=== PATIENT | female | born 1980 | race Two or more races ===

== ENCOUNTER 2016-11-19 04:50 | Emergency (ER) | payer MEDICAID ==
--- NOTE | ~2016-11-19 | ER ---
PATIENT'S NAME: DUKE DIAL [facility] AGE: 36 Y [address] ROOM: [place] [id number] LOCATION: [facility] ADMIT DATE: 11/19/2016 ER/Outpatient Report DISCHARGE DATE: 11/19/2016 FAMILY PHYSICIAN: Physician, Unknown ATTENDING PHYSICIAN: Hussain Riddle Time of Arrival: 0450 hours Time of Evaluation: 0455 hours CHIEF COMPLAINT: Left upper quadrant abdominal pain. HISTORY OF PRESENT ILLNESS: The patient is a 36-year-old female, who presents to emergency department today with a chief complaint of left upper quadrant abdominal pain. She reports she is . She is G7, P6. She reports this pain started at 1:00 a.m. She reports some nausea, no vomiting. Denies any diarrhea or constipation. Denies any fevers. Does have some chills. No urinary frequency, urgency, or painful urination. The pain is sharp, it is currently 5/10 in severity. PAST MEDICAL HISTORY: None. She is O positive. PAST SURGICAL HISTORY: None. SOCIAL HISTORY: The patient denies any tobacco, alcohol, or illicit drug use. ALLERGIES: NO KNOWN DRUG ALLERGIES. MEDICATIONS: vitamins. PRIMARY CARE DOCTOR: Cannot remember the name. 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 ROS: All systems are reviewed by myself and negative with the exception of those discussed in the HPI and past medical history. PHYSICAL EXAMINATION: VITAL SIGNS: Weight 83.5 kg, blood pressure 131/92, pulse 84, respiratory PATIENT'S NAME: DUKE DIAL [facility] AGE: 36 Y [address] ROOM: [place] [id number] LOCATION: [facility] ADMIT DATE: 11/19/2016 ER/Outpatient Report DISCHARGE DATE: 11/19/2016 FAMILY PHYSICIAN: Physician, Unknown ATTENDING PHYSICIAN: Hussain Riddle rate 16, temperature 98.7, oxygen saturation 99% on room air. GENERAL: The patient is a 36-year-old female, appears stated age, in no acute distress. HEENT: Normocephalic, atraumatic. Pupils are equal, round, and reactive to light. Mucous membranes are moist. NECK: Supple. There is no nuchal rigidity. CARDIOVASCULAR: Regular rate and rhythm. No murmurs, rubs, or gallops. LUNGS: Clear to auscultation bilaterally. No wheezes, rales, or rhonchi. ABDOMEN: Gravid. Soft. Mild left upper quadrant tenderness to palpation. No rebound, rigidity, or guarding. Positive bowel sounds. MUSCULOSKELETAL: The patient moves all 4 extremities. SKIN: Warm and dry. No rashes or lesions noted. PELVIC: The patient has no evidence of bleeding noted. The cervix is closed. There is no adnexal tenderness. There is no cervical motion tenderness to palpation. LABORATORY DATA AND X-RAYS: Labs and x-rays are obtained. CBC is normal. Urinalysis is unremarkable except for 25 leukocyte esterase. The patient is O positive in the previous blood type testing. CMP is unremarkable. LFTs are normal. Lipase is normal. A bedside ultrasound was performed by myself, it does reveal intrauterine with a heart rate of 158. There is a crown-rump length of 11 weeks and 1 day. IMPRESSION: 1. An acute nonsurgical left upper quadrant abdominal pain. 2. Intrauterine with crown-rump length of 11 weeks and 1 day and a heart rate of 158. 3. Initial visit. EMERGENCY DEPARTMENT COURSE: The patient was brought back to the examination room. Seen and evaluated by myself. Laboratory analysis and imaging are obtained as described above. The patient is given a GI cocktail. This does result in some mild improvement of the patient's symptoms. The patient's abdominal exam is repeated. She continues to have a nonsurgical abdominal exam at this time. I have discussed results with the patient. Her questions are answered. I have asked that she follows up with Dr. Quiroz in 2-3 days for re-evaluation. I have discussed return to care instructions including worsening symptoms or any other concerns to return to the emergency department as soon as possible. The patient is agreeable without further questions at this time. DISPOSITION/FOLLOW-UP: The patient is discharged home in good condition. PATIENT'S NAME: BEATRICE AMADOR [facility] AGE: 36 Y [address] ROOM: [place] [address] LOCATION: ED ADMIT DATE: 11/19/2016 ER/Outpatient Report DISCHARGE DATE: 11/19/2016 FAMILY PHYSICIAN: Physician, Unknown ATTENDING PHYSICIAN: Hussain Riddle DO CHEMO GOYAL/modl /[id number] d: 11/20/16 0056 t: 11/20/16 1903, OUTPATIENT REPORT
[~2016-11-19 04:50] MED LIST: GLUCOPHAGE500 MG PO; MOTRIN800 MG PO; PERCOCET 5-3251 EACH PO; PRENATAL 1+1)(P1 TAB PO
[2016-11-19 05:36] LABS: BILIRUBIN URINE NEGATIVE (NEGATIVE); BLOOD URINE NEGATIVE /UL (NEGATIVE); COLOR URINE YELLOW (YELLOW); GLUCOSE URINE NEGATIVE (NEGATIVE); KETONE URINE NEGATIVE (NEGATIVE); LEUKOCYTES URINE 25 /UL (NEGATIVE); NITRITE URINE NEGATIVE (NEGATIVE); PROTEIN URINE NEGATIVE (NEGATIVE); TURBIDITY URINE CLEAR (CLEAR); UROBILINOGEN URINE NORMAL (NORMAL)
[2016-11-19 05:46] LABS: BASOPHIL % 0.3 %; EOSINOPHIL # 0.1 K/uL (0.0-0.5); EOSINOPHIL % 0.9 %; HEMATOCRIT 37.6 % (33.0-46.0); HEMOGLOBIN 13.2 g/dL (11.0-15.0); IMMATURE GRANULOCYTE % 0.3 %; LYMPHOCYTE % 27.6 %; MCH 30.8 pg (27.0-34.0); MCHC 35.1 gm/dL (32.0-36.5); MCV 87.6 fl (83.0-98.0); MONOCYTE # 0.5 K/uL (0.0-1.0); MONOCYTE % 4.8 %; MPV 9.8 fl (9.4-12.4); NEUTROPHIL # (ANC) 7.3 K/uL (1.8-7.8); NEUTROPHIL % 66.1 %; NRBC % 0 /100WBC (0-0.00); PLATELET COUNT 208 K/uL (150-450); RBC 4.29 M/uL (3.50-5.50); RDW-CV 12.4 % (11.9-14.6)
[2016-11-19 05:50] LABS: BACTERIA URINE FEW (NEGATIVE); MUCUS URINE 1+ (NEGATIVE); RBC URINE NEGATIVE #/HPF (NEGATIVE); WBC URINE 0-2 #/HPF (NEGATIVE)
[2016-11-19 06:06] LABS: ALBUMIN 3.1 gm/dL (3.5-5.0); ALK PHOS 81 IU/L (33-138); ALT 44 IU/L (12-78); ANION GAP 13.4 (10.0-19.0); AST 21 IU/L (10-40); BLOOD UREA NITROGEN 11 mg/dL (6-24); CALCIUM 8.4 mg/dL (8.5-10.5); CHLORIDE 107 mMol/L (96-110); CO2 21 mMol/L (22-32); CREATININE 0.6 mg/dL (0.5-1.1); POTASSIUM 3.4 mMol/L (3.7-5.1); SODIUM 138 mMol/L (135-145); TOTAL BILIRUBIN 0.4 mg/dL (0.0-1.5); TOTAL PROTEIN 7.5 g/dL (6.0-8.4)
== END 2016-11-19 06:13 | disposition disaster alternative care site (69) ==
LOC: GMED 04:50
PROVIDERS: Emergency Medicine
DX: O99.89 Other specified diseases and conditions complicating pregnancy, childbirth and the puerperium (principal); O09.521 Supervision of elderly multigravida, first trimester; R10.12 Left upper quadrant pain; Z3A.11 11 weeks gestation of pregnancy